=== PATIENT | male | born 2000 | race Caucasian/White ===

== ENCOUNTER 2025-07-07 07:15 | Inpatient (IN) | payer OTHER ==
[~2025-07-07] VITALS: Ht 182.9 cm; Wt 78.9 kg
[2025-07-07 07:20] VITALS: O2SAT 97
[2025-07-07 08:39] LABS: CREATININE 1.1 mg/dL (0.6-1.3); ETHANOL BLOOD < 10 mg/dL (<10); UREA NITROGEN BLOOD 15 mg/dL (9-23)
[2025-07-07 08:41] LABS: BASOPHILS % 0.1 % (0.0-2.0); EOSINOPHILS % 0.1 % (0.0-5.0); HEMATOCRIT. 46.5 % (42.0-52.0); HEMOGLOBIN. 15.6 g/dL (14.0-18.0); LYMPHOCYTES % 17.3 % (20.0-50.0); MEAN PLATELET VOLUME 9.3 fl (7.4-10.4); MONOCYTES % 9.4 % (2.0-8.0); NEUTROPHILS % 73.1 % (40.0-76.0); PLATELET 297 x1000/uL (130-400); RED BLOOD CELL COUNT 4.97 mill/uL (4.7-6.1); RED CELL DISTRIBUTION WIDTH 12.7 % (11.6-14.6)
[2025-07-07] MEDS ORDERED: MAGNESIUM/ALUMINUM HYDROXIDE/SIMETHICONE 30ML UDC PO PRN (10:30)
[2025-07-07] MEDS ORDERED: LORAZEPAM 1MG TABLET PO PRN ×2 (10:30)
[2025-07-07] MEDS ORDERED: ONDANSETRON HCL 4MG/2ML INJ IV PRN (10:30)
[2025-07-07] MEDS ORDERED: LORAZEPAM 1MG TABLET ONE (11:02)
[2025-07-07] MEDS: LORAZEPAM 2MG/ML UD SYRINGE IM PRN (11:46)
[2025-07-07] MEDS: MVI, ADULT NO.1 10 ML, THIAMINE HCL 100 MG, FOLIC ACID 1 MG in SODIUM CHLORIDE 0.9% 1,0... IV ONE (11:59)
[2025-07-07 12:30] VITALS: BP 158/96; PULSE 42; RESP 18; TEMP 36.2; O2SAT 100
[2025-07-07 12:42] LABS: PHOSPHORUS 3.9 mg/dL (2.5-4.9)
[2025-07-07 12:44] VITALS: BP 158/96; PULSE 42; RESP 18; TEMP 36.2512
[2025-07-07] MEDS: SODIUM CHLORIDE 0.9% 1,000 ML IV SCH (13:07)
[2025-07-07] MEDS: PANTOPRAZOLE SODIUM 40 MG/VIAL IV SCH (13:08)
[2025-07-07 13:18] LABS: HEPATITIS A AB IGM NEGATIVE (Negative)
[2025-07-07 13:19] LABS: HEPATITIS B CORE AB IGM NEGATIVE (Negative); HEPATITIS C AB NON REACTIVE (Neg) (Negative)
[2025-07-07] MEDS: SODIUM ZIRCONIUM CYCLOSILICATE 10GM/PACKET PO NR (15:08)
[2025-07-07 16:10] VITALS: BP 156/88; PULSE 58; RESP 18; TEMP 36.6; O2SAT 100
[2025-07-07 16:36] LABS: CREATININE 0.7 mg/dL (0.6-1.3); UREA NITROGEN BLOOD 11 mg/dL (9-23)
[2025-07-07 16:38] LABS: ASPARTATE AMINOTRANSFERASE 16 IU/L (<34); BILIRUBIN DIRECT 0.1 mg/dL (<=3.0)
[2025-07-07 16:39] LABS: BILIRUBIN TOTAL 0.4 mg/dL (0.1-1.0); PROTEIN TOTAL 6.7 g/dL (6.0-8.3)
[2025-07-07 16:40] LABS: T4 FREE 1.33 ng/dL (0.89-1.76)
[2025-07-07 17:59] LABS: CLARITY URINE CLEAR (CLEAR); COLOR URINE YELLOW (YELLOW); GLUCOSE URINE NEGATIVE (NEGATIVE); KETONES URINE 3+ (NEGATIVE); LEUKOCYTE ESTERASE URINE NEGATIVE (NEGATIVE); NITRITE URINE NEGATIVE (NEGATIVE); OCCULT BLOOD URINE NEGATIVE (NEGATIVE); PH URINE 6.0 (4.5-8.0); PROTEIN URINE NEGATIVE (NEGATIVE); SPECIFIC GRAVITY URINE 1.019 (1.005-1.030); UROBILINOGEN URINE 0.2 E.U./dL (0.2-1.0)
[2025-07-07] MEDS ORDERED: SODIUM ZIRCONIUM CYCLOSILICATE 10GM/PACKET PO ONE (18:00)
[2025-07-07 18:17] LABS: *AMPHETAMINES SCREEN URINE NEGATIVE (NEGATIVE); *BENZODIAZEPINES SCREEN URINE NEGATIVE (NEGATIVE)
[2025-07-07 18:18] LABS: *BARBITURATES SCREEN URINE NEGATIVE (NEGATIVE); *COCAINE SCREEN URINE NEGATIVE (NEGATIVE); CANNABINOID URINE SCREEN PRESUMPTIVE POSITIVE (NEGATIVE); ECSTASY MDMA SCREEN URINE NEGATIVE (NEGATIVE); METHADONE URINE SCREEN NEGATIVE (NEGATIVE); OPIATES URINE SCREEN NEGATIVE (NEGATIVE); PHENCYCLIDINE URINE SCREEN NEGATIVE (NEGATIVE)
[2025-07-07 20:00] VITALS: BP 111/62; PULSE 59; RESP 18; TEMP 37; O2SAT 95
[2025-07-08] VITALS: BP 120/71; PULSE 53; RESP 20; TEMP 36.8; O2SAT 99
[2025-07-08 04:00] VITALS: BP 118/50; PULSE 65; RESP 20; TEMP 36.4; O2SAT 96
[2025-07-08 07:29] LABS: BASOPHILS % 0.4 % (0.0-2.0); EOSINOPHILS % 0.2 % (0.0-5.0); HEMATOCRIT. 43.7 % (42.0-52.0); HEMOGLOBIN. 14.6 g/dL (14.0-18.0); LYMPHOCYTES % 24.4 % (20.0-50.0); MEAN PLATELET VOLUME 9.6 fl (7.4-10.4); MONOCYTES % 9.7 % (2.0-8.0); NEUTROPHILS % 65.3 % (40.0-76.0); PLATELET 308 x1000/uL (130-400); RED BLOOD CELL COUNT 4.72 mill/uL (4.7-6.1); RED CELL DISTRIBUTION WIDTH 12.8 % (11.6-14.6)
[2025-07-08 07:40] LABS: CREATININE 0.8 mg/dL (0.6-1.3); UREA NITROGEN BLOOD 5 mg/dL (9-23)
[2025-07-08 07:42] LABS: ASPARTATE AMINOTRANSFERASE 18 IU/L (<34); BILIRUBIN DIRECT 0.2 mg/dL (<=3.0); BILIRUBIN TOTAL 0.4 mg/dL (0.1-1.0); PHOSPHORUS 2.0 mg/dL (2.5-4.9)
[2025-07-08 07:43] LABS: PROTEIN TOTAL 7.0 g/dL (6.0-8.3)
[2025-07-08 08:00] VITALS: BP 145/92; PULSE 86; RESP 18; TEMP 37.1; O2SAT 98
[2025-07-08] MEDS: THIAMINE HCL 100 MG/1 ML 2ML VIAL IM SCH (08:45)
[2025-07-08] MEDS: MULTIVITAMINS,THER W-MINERALS TABLET PO SCH (08:45)
[2025-07-08] MEDS: FOLIC ACID 1MG TABLET PO SCH (08:45)
[2025-07-08] MEDS ORDERED: FOLI-43 PO (11:35)
[2025-07-08] MEDS ORDERED: THIA100T72 PO (11:35)
[2025-07-08 11:37] VITALS: BP 145/92; PULSE 86; TEMP 98.8
[2025-07-08 12:00] VITALS: BP 133/86; PULSE 66; RESP 18; TEMP 36.2; O2SAT 99
[2025-07-08 16:00] VITALS: BP 134/81; PULSE 67; RESP 18; TEMP 35.9; O2SAT 99
[2025-07-11] MEDS ORDERED: THIAMINE HCL 100MG TABLET PO SCH (09:00)
== END 2025-07-08 16:33 | disposition home or self-care (01) | DRG 917 ==
LOC: ER 07:42 → 8WST 09:57 → EDBEDREQTM 10:05 → EDBEDREQ 10:05
PROVIDERS: ADMIT Internal Medicine; ATTEND Internal Medicine
DX: T50.991A Poisoning by other drugs, medicaments and biological substances, accidental (unintentional), initial encounter (principal); G92.9 Unspecified toxic encephalopathy; E87.5 Hyperkalemia; R00.1 Bradycardia, unspecified; F12.10 Cannabis abuse, uncomplicated; E86.0 Dehydration; E83.52 Hypercalcemia; Z78.1 Physical restraint status
CPT/HCPCS: 36415; 80048; 80076; 80305; 80307; 80320; 81003; 82140; 82550; 83605; 83735; 84100; 84439; 84443; 85025; 86705; 86709; 87340; 92610; 93005; 99285; J2060; J2470; J3411; J3490; J7030; G0480